=== PATIENT | female | born 1980 | race Hispanic/Latino ===

== ENCOUNTER 2017-11-15 18:51 | Emergency (ER) | payer OTHER, SELFPAY ==
[2017-11-15] MEDS ORDERED: Ketorolac Tromethamine 60 MG/2 ML VIAL ONE (19:09)
== END 2017-11-15 19:30 | disposition home or self-care (01) ==
LOC: BURERS 18:51
DX: S20.212A Contusion of left front wall of thorax, initial encounter (principal); V43.92XA Unspecified car occupant injured in collision with other type car in traffic accident, initial encounter
CPT/HCPCS: 96372; J1885

== ENCOUNTER 2018-07-11 20:11 | Emergency (ER) | payer SELFPAY ==
[2018-07-11] MEDS ORDERED: Diazepam 5 MG TAB ONE (20:29)
[2018-07-11 20:45] LABS: #Basophils 0.1 thou/uL (0.0-0.2); #Eosinphils 0.3 thou/uL (0.0-0.7); #Lymphocytes 3.3 thou/uL (1.20-3.40); #Monocytes 0.5 thou/uL (0.11-0.59); #Neutrophils 6.5 thou/uL (1.40-6.50); %Basophils 1.2 % (0.0-1.0); %Lymphocytes 30.9 % (21.0-51.0); %Monocytes 4.5 % (0.0-10.0); %Neutrophils 60.4 % (42.0-75.0); Hemoglobin 14.7 g/dL (12.0-16.0); Mean Corpuscular HGB CONC 35.2 g/dL (32.0-36.0); Mean Corpuscular Hemoglobin 32.3 pg (27.0-31.0); Mean Corpuscular Volume 91.8 fL (78.0-98.0); Mean Platelet Volume 6.4 fL (7.4-10.4); Platelet Count 360 thou/uL (130-400); RBC Distribution Width 12.2 % (11.5-14.5); Red Blood Cell (RBC) Count 4.54 mill/uL (4.20-5.40); White Blood Cell (WBC) Count 10.8 thou/uL (4.8-10.8)
[2018-07-11 20:59] LABS: ALT (SGPT) 18 U/L (8-55); AST (SGOT) 15 U/L (5-34); Albumin 4.3 g/dL (3.5-5.0); Alkaline Phosphatase 85 U/L (40-150); Anion Gap 15 mmol/L (10-20); BUN (Urea Nitrogen) 12 mg/dL (7.0-18.7); Bilirubin, Total Less than 0.2 mg/dL (0.2-1.2); Calc. Creatinine Clearance 0 mL/min (70-130); Calcium 9.9 mg/dL (7.8-10.44); Carbon Dioxide 23 mmol/L (22-29); Chloride 107 mmol/L (98-107); Estimated GFR-MDRD 62; Globulin 2.8 g/dL (2.4-3.5); Glucose 151 mg/dL (70-105); Protein, Total 7.1 g/dL (6.0-8.3); Sodium 141 mmol/L (136-145)
[2018-07-11 21:00] LABS: CKMB 0.9 ng/mL (0-6.6); Troponin I Less than 0.010 ng/mL (< 0.028)
== END 2018-07-11 21:18 | disposition home or self-care (01) ==
LOC: BURERS 20:11
DX: R07.89 Other chest pain (principal); F17.210 Nicotine dependence, cigarettes, uncomplicated
CPT/HCPCS: 36415; 80053; 82553; 84443; 84484; 85025; 93005

== ENCOUNTER 2019-02-25 12:18 | Emergency (ER) | payer SELFPAY | END 2019-02-25 12:51 | disposition home or self-care (01) | LOC: BURERS 12:18 | DX: J01.90 Acute sinusitis, unspecified (principal); H83.09 Labyrinthitis, unspecified ear; F17.210 Nicotine dependence, cigarettes, uncomplicated | CPT/HCPCS: 99283 ==

== ENCOUNTER 2019-11-16 07:11 | Emergency (ER) | payer OTHER | END 2019-11-16 07:39 | disposition home or self-care (01) | LOC: BURERS 07:11 | DX: K04.7 Periapical abscess without sinus (principal); K02.9 Dental caries, unspecified; M79.7 Fibromyalgia; F41.9 Anxiety disorder, unspecified; F17.210 Nicotine dependence, cigarettes, uncomplicated | CPT/HCPCS: 99282 ==

== ENCOUNTER 2019-11-17 03:25 | Emergency (ER) | payer OTHER | END 2019-11-17 04:06 | disposition home or self-care (01) | LOC: BURERS 03:25 | DX: K04.7 Periapical abscess without sinus (principal); K02.9 Dental caries, unspecified; M79.7 Fibromyalgia; F41.9 Anxiety disorder, unspecified; F17.210 Nicotine dependence, cigarettes, uncomplicated | CPT/HCPCS: 99283 ==

== ENCOUNTER 2020-06-12 17:48 | Emergency (ER) | payer OTHER ==
[~2020-06-12 17:48] MED LIST: Iopamidol 370 76% 100 ML VIAL ONE
[2020-06-12 18:27] LABS: #Basophils 0.1 thou/uL (0.0-0.2); #Eosinphils 0.3 thou/uL (0.0-0.7); #Lymphocytes 2.7 thou/uL (1.20-3.40); #Monocytes 0.6 thou/uL (0.11-0.59); #Neutrophils 4.6 thou/uL (1.40-6.50); %Basophils 1.6 % (0.0-1.0); %Lymphocytes 32.7 % (21.0-51.0); %Neutrophils 54.8 % (42.0-75.0); Hemoglobin 14.4 g/dL (12.0-16.0); Mean Corpuscular HGB CONC 31.2 g/dL (32.0-36.0); Mean Corpuscular Hemoglobin 30.9 pg (27.0-31.0); Mean Platelet Volume 6.1 fL (7.4-10.4); Platelet Count 324 thou/uL (130-400); RBC Distribution Width 12.7 % (11.5-14.5); Red Blood Cell (RBC) Count 4.67 mill/uL (4.20-5.40); White Blood Cell (WBC) Count 8.3 thou/uL (4.8-10.8)
[2020-06-12] MEDS ORDERED: diphenhydrAMINE 50 MG/ML VIAL ONE (18:29)
[2020-06-12] MEDS ORDERED: Metoclopramide HCl 10 MG/2 ML VIAL ONE (18:29)
[2020-06-12 19:19] LABS: Anion Gap 14 mmol/L (10-20); BUN (Urea Nitrogen) 7 mg/dL (7.0-18.7); Calc. Creatinine Clearance 0 mL/min (70-130); Calcium 8.6 mg/dL (7.8-10.44); Carbon Dioxide 24 mmol/L (22-29); Chloride 108 mmol/L (98-107); Estimated GFR-MDRD 70; Glucose 99 mg/dL (70-105); Sodium 142 mmol/L (136-145)
[2020-06-12] MEDS ORDERED: Ketorolac Tromethamine 30 MG/ML VIAL ONE (20:16)
--- NOTE | 2020-06-12 21:14 | CT ---
CT OF THE BRAIN WITHOUT CONTRAST: Date: 06-12-[address] was done for evaluation of headache. FINDINGS: The ventricles are normal in size with no shift. No intracranial bleeding or extraaxial hematoma was seen. There is no evidence of subarachnoid bleeding. There is no sign of stroke, mass or edema. There is some mild mucosal thickening in the ethmoid air cells bilaterally. The mastoid air cells are clear. IMPRESSION: 1. No acute intracranial findings. 2. Mild mucosal thickening in the ethmoid sinuses. Preliminary report called to Dr. Villatoro at 1950 on 06-12-2020. POS: HOME
--- NOTE | 2020-06-12 21:25 | CT ---
CT ANGIOGRAM OF THE HEAD AND NECK: Date: 06-12-[address] of the head and neck was performed after a bolus of IV contrast was given. Unfortunately, t he IV malfunctioned and so only a very small amount of contrast got into the circulation. As a result , this study is indeterminate for dissection or any major arterial issues. FINDINGS: I understand a clinical consideration was a vertebral artery dissection in this patient. There is chandrakant e contrast present in the vertebral arteries up through the C1 level and as the vertebral arteries ap proach the brainstem and merge to form the basilar artery. There was no sign of nikhil occlusion of th андрей vessels, but the sensitivity of this study is so low that one could not rule out a dissection or say much more than that. One can say that both internal carotid arteries are patent up through the base of the skull, but sten oses would be easily missed, if present. I can detect some degree of filling of each middle cerebral artery and faint filling of each anterior and posterior cerebral arteries is present. Regarding the brain itself, this constitutes a low volume post-contrast study. There were no areas of pathological enhancement to explain the patient's headaches. IMPRESSION: Indeterminate study due to IV malfunction. The vertebral arteries do appear patent, but a dissection or any other major arterial abnormality would be missed by this study due to the lack of contrast. Findings discussed with Dr. Villatoro at 1950 on 06-12-2020. POS: HOME
== END 2020-06-12 20:25 | disposition home or self-care (01) ==
LOC: BURERS 17:48
DX: R51 Headache (principal); M62.838 Other muscle spasm; F17.210 Nicotine dependence, cigarettes, uncomplicated; F41.9 Anxiety disorder, unspecified
CPT/HCPCS: 36415; 70450; 70496; 70498; 85025; 96365; 96375; J1200; J1885; J2765; Q9967